=== PATIENT | male | born 1985 | race Caucasian/White ===

== ENCOUNTER 2023-07-24 15:27 | Outpatient (OUT) | payer BC, SELFPAY ==
--- NOTE | 2023-07-24 15:37 | MR_ITS ---
[address] [address] Patient Name: GISELA JUNG MRN: [id number] date: 1985 Sex: M Assigned Patient Location: MRI Current Patient Location: MRI Accession/Order Number: [id number] Exam Date: 07/24/2023 16:00 Report Date: 07/24/2023 17:23 At the request of: ZANDER ADAMS Procedure: MR lumbar spine wo con EXAMINATION: MR lumbar spine wo con HISTORY: M54.16LUMBAR RADICULOPATHY COMPARISON: No relevant comparison available. TECHNIQUE: A variety of imaging planes and parameters were utilized for visualization of suspected pathology. FINDINGS: For the purposes of numbering, sagittal T2 image # 9 extends from the T10-T11 vertebral body superiorly to the S3 level inferiorly. PARASPINAL AREA: Normal with no visible mass. BONES: Normal alignment with no acute fracture or spondylolisthesis. No bone edema. CORD/CAUDA EQUINA: Normal caliber, contour, and signal intensity. DISC LEVELS: 12-L1: No significant disc/facet abnormality, spinal stenosis, or foraminal stenosis. L1-L2: No significant disc/facet abnormality, spinal stenosis, or foraminal stenosis. L2-L3: No significant disc/facet abnormality, spinal stenosis, or foraminal stenosis. L3-L4: Mild disc desiccation. No disc bulge or herniation. No central or foraminal stenosis L4-L5: Mild to moderate disc space narrowing with disc desiccation. Posterior central broad-based disc protrusion extending up to 2.5 mm. Posterior central annular tear. No definite central stenosis. Minimal bilateral foraminal stenosis L5-S1: No significant disc/facet abnormality, spinal stenosis, or foraminal stenosis. MR/MR lumbar spine wo con IMPRESSION: Discogenic changes at L3-L4 and L4-L5 with minimal bilateral foraminal stenosis Electronically authenticated by: DALY SIGALA Date: 07/24/2023 17:23
== END 2023-07-24 15:28 | disposition home or self-care (01) ==
LOC: MRI 15:29
PROVIDERS: PCP Family Medicine; Visit Provider Nurse Practitioner Family
DX: M54.16 Radiculopathy, lumbar region (principal)
CPT/HCPCS: 72148